=== PATIENT | male | born 1990 | race Caucasian/White ===

== ENCOUNTER 2023-02-09 21:22 | Emergency (ER) | payer SELFPAY ==
[2023-02-09] MEDS ORDERED: Silver Sulfadiazine 1% Crm 400 GM Jar TOP ONE (21:45)
[2023-02-09] MEDS ORDERED: Silver Sulfadiazine 1% Crm 50 GM Tube TOP ONE (22:18)
== END 2023-02-09 22:30 | disposition home or self-care (01) ==
LOC: JD.ED 21:22
DX: T65.891A Toxic effect of other specified substances, accidental (unintentional), initial encounter (principal); T24.631A Corrosion of second degree of right lower leg, initial encounter; T24.6 Corrosion of second degree of lower limb, except ankle and foot; Z88.8 Allergy status to other drugs, medicaments and biological substances
CPT/HCPCS: 16000; 16020; 99283; A9270-GY